=== PATIENT | female | born 1965 | race Caucasian/White ===

== ENCOUNTER → 2018-11-14 | Outpatient (CLI) | payer OTHER ==
[2018-11-14 13:19] LABS: ANION GAP 7 (5-13); BLOOD UREA NITROGEN 25 mg/dl (7-20); CALCIUM 10.1 mg/dl (8.4-10.2); CARBON DIOXIDE 29 mmol/L (21-31); CHLORIDE 105 mmol/L (97-110); CREATININE 1.07 mg/dl (0.44-1.00); Estimated GFR 54 mL/min (>60); GLUCOSE 94 mg/dl (70-220); POTASSIUM 4.9 mmol/L (3.5-5.1); SODIUM 141 mmol/L (135-144)
== END | disposition home or self-care (01) ==
LOC: LAB 12:37
DX: R94.39 Abnormal result of other cardiovascular function study (principal)
CPT/HCPCS: 80048

== ENCOUNTER → 2018-11-26 | Outpatient (CLI) | payer OTHER ==
[~2018-11-26] MED LIST: LABETALOL HCL 20MG INJ; METOPROLOL 5 MG INJ; NITROGLYCERIN AEROSOL (4.9 GM)
[2018-11-26] MEDS: IOHEXOL 100 ML (10:05)
[2018-11-26] MEDS: SOD CHLORIDE 0.9% 100 ML (10:05)
== END | disposition home or self-care (01) ==
LOC: C/S 08:38
DX: R94.39 Abnormal result of other cardiovascular function study (principal); R07.9 Chest pain, unspecified
CPT/HCPCS: 75571; 75571-59; 75574